=== PATIENT | male | born 1980 | race Caucasian/White ===

== ENCOUNTER 2017-11-19 22:11 | Emergency (ER) | payer MEDICAID ==
[~2017-11-19] VITALS: Ht 180.3 cm; Wt 77.2 kg
[2017-11-19] MEDS ORDERED: propofol 10mg/ml 20ml vial IV ONE (23:10)
[2017-11-19] MEDS ORDERED: normal saline 1000ML IV soln IVB ONE (23:10)
[2017-11-19] MEDS ORDERED: fentaNYL/PF 50MCG/1 ML 2ML syringe IV ONE (23:10)
[2017-11-20] MEDS ORDERED: propofol 1000mg/100ml bottle 100 ML IV ONE (00:18)
[2017-11-20] MEDS ORDERED: IBUP-1986 PO (00:50)
[2017-11-20 01:18] VITALS: BP 143/94
== END 2017-11-20 01:14 | disposition home or self-care (01) ==
LOC: ER 22:12
DX: S53.105A Unspecified dislocation of left ulnohumeral joint, initial encounter (principal); F10.129 Alcohol abuse with intoxication, unspecified; F17.200 Nicotine dependence, unspecified, uncomplicated; F12.10 Cannabis abuse, uncomplicated; W18.30XA Fall on same level, unspecified, initial encounter; Y93.72 Activity, wrestling; Y92.89 Other specified places as the place of occurrence of the external cause; Y99.8 Other external cause status
CPT/HCPCS: 24600; 73070; 94760; 96361; 96374; 99285; J2704; J3010; J7030; 99152

== ENCOUNTER 2017-12-02 10:10 | Outpatient (CLI) | payer MEDICAID ==
[~2017-12-02 10:10] MED LIST: IBUP-1986 PO
[2017-12-02 10:12] VITALS: BP 136/89
[2017-12-02 10:39] VITALS: BP 136/89
== END 2017-12-02 11:00 | disposition home or self-care (01) ==
LOC: ORTHO 10:10
PROVIDERS: ATTEND Nurse Practitioner Family
DX: S53.105A Unspecified dislocation of left ulnohumeral joint, initial encounter (principal); F12.90 Cannabis use, unspecified, uncomplicated; Z88.5 Allergy status to narcotic agent; X58.XXXA Exposure to other specified factors, initial encounter; Y93.89 Activity, other specified; Y92.89 Other specified places as the place of occurrence of the external cause; Y99.8 Other external cause status
CPT/HCPCS: 29105

== ENCOUNTER 2017-12-23 09:23 | Outpatient (CLI) | payer MEDICAID ==
[2017-12-23 09:31] VITALS: BP 147/83
== END 2017-12-23 10:10 | disposition home or self-care (01) ==
LOC: ORTHO 09:23
PROVIDERS: ATTEND Nurse Practitioner Family
DX: S53.105D Unspecified dislocation of left ulnohumeral joint, subsequent encounter (principal); M25.422 Effusion, left elbow; F17.210 Nicotine dependence, cigarettes, uncomplicated; F12.90 Cannabis use, unspecified, uncomplicated; Z88.5 Allergy status to narcotic agent; Z56.0 Unemployment, unspecified; X58.XXXD Exposure to other specified factors, subsequent encounter; Y93.72 Activity, wrestling
CPT/HCPCS: 29105; 73070; 99213

== ENCOUNTER 2023-04-17 12:41 | Emergency (ER) | payer MEDICAID ==
[~2023-04-17] VITALS: Ht 180.3 cm; Wt 69.8 kg
[2023-04-17 12:43] VITALS: BP 185/118
[2023-04-17] MEDS ORDERED: ketorolac tromethamine 15mg/ml inj. IM ONE (14:40)
[2023-04-17] MEDS ORDERED: HYDROcodone/acetaminophen 5mg/325mg tablet PO ONE (14:40)
== END 2023-04-17 15:32 | disposition home or self-care (01) ==
LOC: ER 12:42
DX: S46.911A Strain of unspecified muscle, fascia and tendon at shoulder and upper arm level, right arm, initial encounter (principal); F12.10 Cannabis abuse, uncomplicated; Z88.5 Allergy status to narcotic agent; Z87.81 Personal history of (healed) traumatic fracture; W19.XXXA Unspecified fall, initial encounter; Y93.89 Activity, other specified; Y92.89 Other specified places as the place of occurrence of the external cause; Y99.8 Other external cause status
CPT/HCPCS: 73030; 96372; 99283; J1885; A4565